=== PATIENT | male | born 1955 | race Caucasian/White ===

== ENCOUNTER 2017-03-20 09:30 | Inpatient (IN) | payer MEDICARE ==
[~2017-03-20] VITALS: Ht 180.3 cm; Wt 96.2 kg
[2017-03-20] MEDS ORDERED: TRAMADOL HCL50 MG PO (12:06)
[2017-03-20 15:56] LABS: BUN/CREATININE RATIO 30 (0-10)
[2017-03-21 03:48] LABS: HEMOGLOBIN 11.8 gm/dl (14.0-17.5); RED BLOOD COUNT 4.36 M/UL (4.20-5.50); WHITE BLOOD COUNT 7.1 K/UL (4.5-11.0)
[2017-03-21 04:02] LABS: BUN/CREATININE RATIO 30 (0-10)
[2017-03-22 03:08] LABS: HEMOGLOBIN 12.4 gm/dl (14.0-17.5); RED BLOOD COUNT 4.62 M/UL (4.20-5.50); WHITE BLOOD COUNT 6.8 K/UL (4.5-11.0)
[2017-03-22 03:28] LABS: BUN/CREATININE RATIO 21 (0-10)
--- NOTE | 2017-03-22 17:04 | NUR ---
1500 pt on speciality bed air mattress. pt and family refusing for pt to be turned due to patients condition. i explained my concerns for not turning. including worsining and developement of pressure ulcers. pt and family listened to concerns but still refuses to be turned.
[2017-03-23 03:31] LABS: HEMOGLOBIN 12.2 gm/dl (14.0-17.5); RED BLOOD COUNT 4.45 M/UL (4.20-5.50); WHITE BLOOD COUNT 7.7 K/UL (4.5-11.0)
[2017-03-23 03:47] LABS: BUN/CREATININE RATIO 19 (0-10)
[2017-03-24 04:35] LABS: BUN/CREATININE RATIO 19 (0-10)
[2017-03-25 04:36] LABS: BUN/CREATININE RATIO 21 (0-10)
[2017-03-26 05:06] LABS: BUN/CREATININE RATIO 27 (0-10)
[2017-03-27 04:15] LABS: BUN/CREATININE RATIO 21 (0-10)
[2017-03-28 04:12] LABS: BUN/CREATININE RATIO 28 (0-10)
[2017-03-28] MEDS ORDERED: ASPIRIN81 MG PO (15:06)
[2017-03-28] MEDS ORDERED: COLACE 100MG C100 MG PO (15:07)
[2017-03-28] MEDS ORDERED: PANTOPRAZOLE SO40 MG PO (15:08)
[2017-03-28] MEDS ORDERED: BETADINE30 ML TOP (15:09)
[2017-03-28] MEDS ORDERED: SOTALOL80 MG PO (15:12)
[2017-03-28] MEDS ORDERED: LOTRIMIN CREAM15 GM EXT (15:13)
== END 2017-03-28 19:17 | disposition home or self-care (01) | DRG 309 ==
LOC: CCU 11:54
PROVIDERS: Internal Medicine; Physician Assistant; ADMIT Family Medicine
PROC: 0HBRXZZ Excision of Toe Nail, External Approach (ICD-10-PCS; principal; 2017-03-24)
PROC: 0HDRXZZ Extraction of Toe Nail, External Approach (ICD-10-PCS; principal; 2017-03-24)
DX: I49.8 Other specified cardiac arrhythmias (principal); I50.32 Chronic diastolic (congestive) heart failure; J96.10 Chronic respiratory failure, unspecified whether with hypoxia or hypercapnia; J98.11 Atelectasis; I47.1 Supraventricular tachycardia; I42.9 Cardiomyopathy, unspecified; G71.11 Myotonic muscular dystrophy; L60.0 Ingrowing nail; L60.3 Nail dystrophy; B35.1 Tinea unguium; I49.3 Ventricular premature depolarization; R41.0 Disorientation, unspecified; R07.9 Chest pain, unspecified; L03.032 Cellulitis of left toe; L03.031 Cellulitis of right toe; B96.5 Pseudomonas (aeruginosa) (mallei) (pseudomallei) as the cause of diseases classified elsewhere; L97.521 Non-pressure chronic ulcer of other part of left foot limited to breakdown of skin; L97.511 Non-pressure chronic ulcer of other part of right foot limited to breakdown of skin; L89.311 Pressure ulcer of right buttock, stage 1; R23.3 Spontaneous ecchymoses; L98.8 Other specified disorders of the skin and subcutaneous tissue; B35.6 Tinea cruris; M54.5 Low back pain; E78.5 Hyperlipidemia, unspecified; Z93.0 Tracheostomy status; M21.379 Foot drop, unspecified foot; E66.01 Morbid (severe) obesity due to excess calories; G47.33 Obstructive sleep apnea (adult) (pediatric); Z68.32 Body mass index [BMI] 32.0-32.9, adult; Z93.1 Gastrostomy status; Z86.14 Personal history of Methicillin resistant Staphylococcus aureus infection; Z74.01 Bed confinement status; Z99.81 Dependence on supplemental oxygen; Z79.899 Other long term (current) drug therapy; Z83.3 Family history of diabetes mellitus; Z82.49 Family history of ischemic heart disease and other diseases of the circulatory system; Z87.442 Personal history of urinary calculi; Z80.1 Family history of malignant neoplasm of trachea, bronchus and lung; Z80.8 Family history of malignant neoplasm of other organs or systems
CPT/HCPCS: ECHO; 36415; 71010; 73620; 80048; 80053; 80061; 80202; 82550; 82553; 82800; 83036; 83735; 84439; 84443; 84484; 85027; 87040; 87070; 87077; 87186; 87205; 93306; 93925; 94002; 94003; 94640; J0692; J1650; J2543; J3370; J7050; J7070